=== PATIENT | female | born 1975 | race Caucasian/White ===

== ENCOUNTER 2017-09-01 23:03 | Emergency (ER) | payer OTHER ==
[~2017-09-01] VITALS: Ht 172.7 cm; Wt 95.0 kg
[2017-09-02] MEDS ORDERED: PERCOCET 5/325M1 TAB PO (00:36)
[2017-09-02 00:40] VITALS: BP 150/56
== END 2017-09-02 00:40 | disposition home or self-care (01) | DRG 563 ==
LOC: ED 23:03
DX: S63.501A Unspecified sprain of right wrist, initial encounter (principal); M25.531 Pain in right wrist; R22.31 Localized swelling, mass and lump, right upper limb